=== PATIENT | female | born 1950 | race African-American/Black ===

== ENCOUNTER 2018-10-08 20:01 | Emergency (ER) | payer OTHER ==
[~2018-10-08] VITALS: Ht 154.9 cm; Wt 117.9 kg
[~2018-10-08 20:01] MED LIST: ABILIFY; ACETAMINOPHEN325 M1 PO; ACIPHEX 20 MG T20 MG; ACIPHEX 20 MG T20 MG PO; ADULT LOW DOSE81 MG PO; ALDACTONE100 MG PO; ALPHAGAN P10 ML OPHTHALMIC; AMARYL4 MG; AMARYL4 MG PO; AMBIEN 10 MG TA10 MG PO; ATORVASTATIN CA40 MG PO; AUGMENTIN 875875 MG PO; BENICAR20 MG PO; CENTRUM TABLET1 TAB PO; DIOVAN 80 MG TA80 M1 PO; DIOVAN40 MG PO; DITROPAN XL5 M1 PO; DITROPAN XL5 MG PO; FISH OIL 1,0001 EAC5 PO; FLONASE16 GM NASAL; FUROSEMIDE 20 M20 M1 PO; FUROSEMIDE 40 M40 MG PO; GLUMETZA500 PO; HUMALOG MI100 UNIT/6 SQ; HUMALOG100 UNIT/1; ISOSORBIDE DINI30 MG PO; LASIX 20 MG TAB20 MG PO; LEVEMIR SUBQ; LOPERAMIDE 2 MG2 M1; LUMIGAN2.5 M1 OPHTHALMIC; LYRICA 50 MG50 MG PO; LYRICA100 MG PO; MUCINEX600 MG PO; NEXIUM40 MG PO; NORCO 5-325 TA1 EACH PO; NOVOLOG100 UNIT/1 SUBQ; OCUVITE PRESER1 EACH PO; OXYBUTYNIN 5 MG5 M1 GT; PLAVIX 75 MG TA75 MG PO; RANITIDINE 150150 M1 PO; SPIRONOLACTONE100 M1 PO; TIZANIDINE HCL 22 M1 PO; TOPROL XL100 MG PO; ULTRAM 50MG TAB50 MG PO; UREA CREAM 40%1 TUB1 TOP; UREA CREAM 40%1 TUBE; VANIQA60 GM TP; VICTOZA0.6 MG/0.1 PO; VITAMIN B-12250 MCG; VITAMINC500 PO; ZANAFLEX4 MG PO; ZOCOR 20 MG TAB20 M1 PO; ZOCOR PO; ZOCOR40 MG PO
[2018-10-08] MEDS ORDERED: DOXYCYCLINE 10100 MG PO (22:04)
[2018-10-08] MEDS ORDERED: NORCO 5-325 TA1 EACH PO (22:04)
[2018-10-09 00:15] VITALS: BP 122/70
== END 2018-10-09 00:15 | disposition home or self-care (01) ==
LOC: ER 20:01
DX: S09.90XA Unspecified injury of head, initial encounter (principal); M25.511 Pain in right shoulder; M25.562 Pain in left knee; G89.29 Other chronic pain; M54.9 Dorsalgia, unspecified; R05 Cough; E11.22 Type 2 diabetes mellitus with diabetic chronic kidney disease; I12.9 Hypertensive chronic kidney disease with stage 1 through stage 4 chronic kidney disease, or unspecified chronic kidney disease; N18.3 Chronic kidney disease, stage 3 (moderate); I25.10 Atherosclerotic heart disease of native coronary artery without angina pectoris; K21.9 Gastro-esophageal reflux disease without esophagitis; M19.90 Unspecified osteoarthritis, unspecified site; G47.30 Sleep apnea, unspecified; F03.90 Unspecified dementia, unspecified severity, without behavioral disturbance, psychotic disturbance, mood disturbance, and anxiety; Z86.73 Personal history of transient ischemic attack (TIA), and cerebral infarction without residual deficits; Z79.4 Long term (current) use of insulin; W06.XXXA Fall from bed, initial encounter; Y93.89 Activity, other specified; Y92.89 Other specified places as the place of occurrence of the external cause; Y99.8 Other external cause status

== ENCOUNTER 2019-06-17 06:43 | Emergency (ER) | payer OTHER ==
[~2019-06-17] VITALS: Ht 157.5 cm; Wt 131.5 kg
[~2019-06-17 06:43] MED LIST changes: +DOXYCYCLINE 10100 MG PO
[2019-06-17 09:48] LABS: ABSOLUTE NEUTROPHILS 3.4 thou/uL (1.4-8.2); BASOPHILS 0.4 % (0.0-2.0); EOSINOPHILS 2.1 % (0.0-3.0); HEMATOCRIT 36.8 % (37.0-47.0); HEMOGLOBIN 11.6 gm/dL (12.0-15.0); LYMPHOCYTES 30.9 % (24.0-44.0); MCH 28.8 pg (26.0-34.0); MCHC 31.5 g/dL (28.0-37.0); MCV 91.4 fL (80.0-100.0); MONOCYTES 9.3 % (1.0-8.0); PLATELET COUNT 173 thou/uL (150-400); POLYS 57.3 % (36.0-66.0); RBC 4.03 mil/uL (4.20-5.00); RDW 14.3 % (10.5-14.5); WBC 5.9 thou/uL (4.0-11.0)
[2019-06-17 09:49] LABS: CALCIUM 8.9 mg/dL (8.5-10.1); CREATININE 0.9 mg/dL (0.6-1.0)
[2019-06-17 09:52] LABS: POTASSIUM 5.2 mmol/L (3.5-5.1)
[2019-06-17 09:56] LABS: ALBUMIN 2.9 g/dL (3.4-5.0); TOTAL BILIRUBIN 0.4 mg/dL (<0.1-1.0); TOTAL PROTEIN 6.3 g/dL (6.4-8.2)
[2019-06-17 11:24] VITALS: BP 96/69
--- NOTE | 2019-06-18 07:53 | EKG ---
[place] [address] [facility] [place] [address] ELECTROCARDIOGRAM REPORT Name: JAIRO GATES [facility]: [facility]P [facility] [id number] Admission: 06/17/19 Attend Phys: Discharge: 06/17/19 Date of : 48 Report #: [id number] THIS REPORT FOR: //name// [facility] ED Test Date: 2019-06-17 Test Time: 09:30:23 Pat Name: JAIRO GATES Department: Room: Gender: F Nanotechnology Engineering Technician: BRIAN : 1950 Requested By: Curt Gavin Order Number: [id number] MD: Perry Rich Measurements Intervals [place] Rate: 68 P: 18 WI: 152 QRS: 67 QRSD: 79 T: 187 QT: 478 QTc: 509 Interpretive Statements Sinus rhythm Nonspecific ST and T wave abnormality Compared to ECG 10/24/2015 19:07:30 No significant change was found Electronically Signed On 06-18-2019 7:53:35 CDT by Perry Rich [email or web address] <ELECTRONICALLY SIGNED> By: Perry Rich MD, [facility] 06/18/19 0753 930 9 Perry Rich MD, FACC /EPI
== END 2019-06-17 11:25 ==
LOC: ER 06:43
PROVIDERS: Emergency Medicine
DX: S00.83XA Contusion of other part of head, initial encounter (principal); S00.511A Abrasion of lip, initial encounter; M25.511 Pain in right shoulder; R05 Cough; I12.9 Hypertensive chronic kidney disease with stage 1 through stage 4 chronic kidney disease, or unspecified chronic kidney disease; E11.22 Type 2 diabetes mellitus with diabetic chronic kidney disease; N18.3 Chronic kidney disease, stage 3 (moderate); I25.10 Atherosclerotic heart disease of native coronary artery without angina pectoris; K21.9 Gastro-esophageal reflux disease without esophagitis; M19.90 Unspecified osteoarthritis, unspecified site; G47.30 Sleep apnea, unspecified; Z95.5 Presence of coronary angioplasty implant and graft; Z86.73 Personal history of transient ischemic attack (TIA), and cerebral infarction without residual deficits; Z79.4 Long term (current) use of insulin; W06.XXXA Fall from bed, initial encounter; Y93.89 Activity, other specified; Y92.89 Other specified places as the place of occurrence of the external cause; Y99.8 Other external cause status

== ENCOUNTER 2020-05-16 12:19 | Emergency (ER) | payer OTHER ==
[~2020-05-16] VITALS: Ht 154.9 cm; Wt 108.9 kg
[2020-05-16 13:30] LABS: HEMOGLOBIN 10.2 gm/dL (12.0-15.0); MCH 29.2 pg (26.0-34.0); MCHC 31.9 g/dL (28.0-37.0); MCV 91.6 fL (80.0-100.0); PLATELET COUNT 139 thou/uL (150-400); RDW 14.5 % (10.5-14.5); WBC 4.3 thou/uL (4.0-11.0)
[2020-05-16 13:38] LABS: CALCIUM 8.7 mg/dL (8.5-10.1); POTASSIUM 4.2 mmol/L (3.5-5.1)
[2020-05-16 13:44] LABS: ALBUMIN 3.1 g/dL (3.4-5.0); TOTAL BILIRUBIN 0.5 mg/dL (0.2-1.0); TOTAL PROTEIN 6.6 g/dL (6.4-8.2)
[2020-05-16 13:45] LABS: URINE BILIRUBIN NEGATIVE (Negative); URINE BLOOD 3+ (Negative); URINE CLARITY CLEAR; URINE COLOR YELLOW; URINE GLUCOSE-RANDOM* NEGATIVE (Negative); URINE KETONES NEGATIVE (Negative); URINE LEUKOCYTES-REFLEX TRACE (Negative); URINE NITRITE-REFLEX NEGATIVE (Negative); URINE PROTEIN (DIPSTICK) NEGATIVE (Negative); URINE UROBILINOGEN 0.2 E.U./dl (0.2-1.0)
[2020-05-16 14:12] LABS: CASTS None Seen /LPF (None Seen); CRYSTALS None Seen /LPF (None Seen); SQUAMOUS 0-3 Few /LPF (0-3); URINE RBC 3-10 Few /HPF (0-2); URINE WBC-REFLEX 0-5 Rare /HPF (0-5)
[2020-05-16 14:13] LABS: BACTERIA-REFLEX 1-9 Few /HPF (None Seen)
[2020-05-16 14:26] LABS: ANISOCYTOSIS 1+
[2020-05-16 14:27] LABS: POLYCHROMASIA OCCASIONAL
[2020-05-16 21:22] VITALS: BP 157/75
== END 2020-05-16 21:22 | disposition home or self-care (01) ==
LOC: ER 12:19
PROVIDERS: Physician Assistant
DX: E87.0 Hyperosmolality and hypernatremia (principal); R41.82 Altered mental status, unspecified; F22 Delusional disorders; E11.649 Type 2 diabetes mellitus with hypoglycemia without coma; I10 Essential (primary) hypertension; I25.10 Atherosclerotic heart disease of native coronary artery without angina pectoris; K21.9 Gastro-esophageal reflux disease without esophagitis; M19.90 Unspecified osteoarthritis, unspecified site; Z79.4 Long term (current) use of insulin; Z79.899 Other long term (current) drug therapy; Z95.5 Presence of coronary angioplasty implant and graft; Z86.73 Personal history of transient ischemic attack (TIA), and cerebral infarction without residual deficits

== ENCOUNTER 2020-07-15 05:53 | Inpatient (IN) | payer OTHER ==
[2020-07-15] VITALS (45 sets, daily range): BP systolic 61–178; BP diastolic 29–96
[~2020-07-15] VITALS: Ht 172.7 cm; Wt 113.8 kg
[2020-07-15 06:38] LABS: HEMATOCRIT 28.4 % (37.0-47.0); HEMOGLOBIN 8.7 gm/dL (12.0-15.0); MCH 28.7 pg (26.0-34.0); MCHC 30.7 g/dL (28.0-37.0); MCV 93.6 fL (80.0-100.0); RBC 3.03 mil/uL (4.20-5.00); RDW 14.5 % (10.5-14.5); WBC 3.1 thou/uL (4.0-11.0)
[2020-07-15 06:45] LABS: ANION GAP 2 mmol/L (7-16); BUN 32 mg/dL (7-18); CALCIUM 7.8 mg/dL (8.5-10.1); CHLORIDE 105 mmol/L (98-107); CO2 37 mmol/L (21-32); CREATININE 2.1 mg/dL (0.6-1.0); GLUCOSE 139 mg/dL (74-106); POTASSIUM 5.3 mmol/L (3.5-5.1); SODIUM 144 mmol/L (136-145)
[2020-07-15 06:47] LABS: APTT 29.4 Seconds (24.5-32.8)
[2020-07-15 06:55] LABS: ALBUMIN 2.2 g/dL (3.4-5.0); MAGNESIUM 1.8 mg/dL (1.8-2.4); SGOT 22 U/L (15-37); SGPT 14 U/L (30-65); TOTAL BILIRUBIN 0.2 mg/dL (0.2-1.0); TOTAL PROTEIN 6.1 g/dL (6.4-8.2); TROPONIN-I <0.06 ng/mL (<0.06)
--- NOTE | 2020-07-15 07:09 | NUR ---
DR RAY STATES PT NEEDS CENTRAL LINE
[2020-07-15 07:49] LABS: BE(vivo) 1.1 mmol/L (-2 to +3); PCO2 76.1 mmHg (35.0-45.0); PO2 147.6 mmHg (80.0-100.0); pH 7.214 (7.360-7.450); sO2 98.3 % (92.0-98.0)
[2020-07-15 07:51] LABS: URINE BILIRUBIN NEGATIVE (Negative); URINE BLOOD TRACE (Negative); URINE CLARITY SL CLOUDY; URINE COLOR YELLOW; URINE GLUCOSE-RANDOM* NEGATIVE (Negative); URINE KETONES NEGATIVE (Negative); URINE LEUKOCYTES-REFLEX 2+ (Negative); URINE NITRITE-REFLEX NEGATIVE (Negative); URINE PROTEIN (DIPSTICK) TRACE (Negative); URINE UROBILINOGEN 0.2 E.U./dl (0.2-1.0)
[2020-07-15 08:02] LABS: AMP/METHAMP Negative (Negative); BARBITURATES Negative (Negative); BENZODIAZEPINES Negative (Negative); COCAINE Negative (Negative); METHADONE Negative (Negative); OPIATES Negative (Negative); PCP Negative (Negative)
[2020-07-15 08:19] LABS: FINE GRANULAR CASTS 0-3 Few /LPF (None Seen); HYALINE CASTS 0-3 Few /LPF (None Seen)
[2020-07-15 08:20] LABS: BACTERIA-REFLEX >30 Many /HPF (None Seen); URINE RBC 0-2 Rare /HPF (0-2); URINE WBC-REFLEX >25 Many /HPF (0-5)
[2020-07-15 08:21] LABS: SQUAMOUS 0-3 Few /LPF (0-3)
[2020-07-15 08:22] LABS: CRYSTALS None Seen /LPF (None Seen)
[2020-07-15 08:44] LABS: ABSOLUTE NEUTROPHILS 2.2 thou/uL (1.4-8.2)
[2020-07-15 08:45] LABS: ANISOCYTOSIS SLIGHT; PLATELET COUNT 93 thou/uL (150-400)
[2020-07-15] MEDS ORDERED: ATORVASTATIN CA80 MG PO (10:01)
[2020-07-15] MEDS ORDERED: OLANZAPINE5 MG PO (10:01)
[2020-07-15] MEDS ORDERED: CLOPIDOGREL75 MG PO (10:02)
[2020-07-15] MEDS ORDERED: GABAPENTIN 100100 MG PO (10:02)
[2020-07-15] MEDS ORDERED: TAMSULOSIN HCL0.4 MG PO (10:02)
[2020-07-15] MEDS ORDERED: OLANZAPINE2.5 MG PO (10:02)
[2020-07-15] MEDS ORDERED: CONSTULOSE10 GM/152 (10:02)
[2020-07-15] MEDS ORDERED: ARICEPT10 MG PO (10:03)
[2020-07-15] MEDS ORDERED: IMDUR 30 MG TAB30 M1 PO (10:03)
[2020-07-15] MEDS ORDERED: DIVALPROEX SOD250 M3 PO (10:03)
[2020-07-15] MEDS ORDERED: MEMANTINE HCL10 MG PO (10:03)
[2020-07-15 10:07] LABS: HCO3 38.9 mmol/L (22.0-26.0); PCO2 120.7 mmHg (35.0-45.0); PO2 65.8 mmHg (80.0-100.0); pH 7.126 (7.360-7.450); sO2 83.5 % (92.0-98.0)
[2020-07-15 10:58] LABS: BE(vivo) 3.3 mmol/L (-2 to +3); HCO3 33.9 mmol/L (22.0-26.0); PO2 60.3 mmHg (80.0-100.0); sO2 81.6 % (92.0-98.0)
[2020-07-15 10:59] LABS: PCO2 98.2 mmHg (35.0-45.0); pH 7.156 (7.360-7.450)
--- NOTE | 2020-07-15 12:03 | NUR ---
CONSULTED TO PLACE A CENTRAL LINE FOR A PATIENT IN ER POST CODE. THE PATIENT HAS A RIGHT EJ AND UNABLE TO OBTAIN ANY OTHER ACCESS. ORDER AND CONSENT PER MEDICAL NECESSITY/DR. RAY. THE LEFT JUGULAR WAS WIDLEY PATIENT, THE PATIENTS NECK AREA IS LARGE AND VESSEL IS DEEP WHICH MADE ACCESSING THE VEIN DIFFICULT. THE LINE WAS PLACED PER POLICY AFTER A BEDSIDE TIMEOUT WAS COMPLETED. THE 25CM LINE WAS ADVANCED TO 20CM WITH BRISK BLOOD RETURN AND FLUSHED EASILY. A STAT CHEST XRAY CONFIRMED LINE IN THE SVC AND RELEASED FOR USE
[2020-07-15] MEDS ORDERED: ISOSORBIDE MONO30 M1 PO (13:58)
[2020-07-15] MEDS ORDERED: LEVEMIR FL100 UNIT/2 SUBQ (13:59)
[2020-07-15] MEDS ORDERED: SODIUM BICARBO650 M3 PO (14:00)
[2020-07-15 17:17] LABS: BE(vivo) -0.8 mmol/L (-2 to +3); HCO3 29.1 mmol/L (22.0-26.0); PO2 86.6 mmHg (80.0-100.0); sO2 93.2 % (92.0-98.0)
[2020-07-15 17:19] LABS: PCO2 83.7 mmHg (35.0-45.0); pH 7.159 (7.360-7.450)
--- NOTE | 2020-07-15 19:38 | NUR ---
PT CAME FROM ER AT 1630. PT ON BIPAP AT 60% FIO2. PT AWAKE BUT ONLY LOZCALIZES PAIN. PT NOT FOLLOWING COMMANDS. PT HAVE A LEFT IJ CENTRAL LINE. PT CONNECTED TO ICU MONITORS. ABG DRAWN AT 1730. DR. CROOK NOTIFIED BY RT KAREN ABOUT PT ABG VALUES. DR. CROOK AT BEDSIDE. PT INTUBATED AT 1815 WITH 7.5 ETT 22 AT LIPS. PT GIVEN 40MG ETOMIDATE AND 10 MG ROCURONIUM FOR SEDATION BEFORE INTUBATION. PT STARTED ON LEVOPHED. PT HAS COPIOUS AMOUNT OF SECRETIONS. PT HAD BEDSIDE BRONCHOSCOPY BY DR. CROOK.
[2020-07-16] VITALS (79 sets, daily range): BP systolic 86–175; BP diastolic 40–97
[2020-07-16 06:05] LABS: ABSOLUTE NEUTROPHILS 9.1 thou/uL (1.4-8.2); BASOPHILS 0.2 % (0.0-2.0); HEMATOCRIT 26.6 % (37.0-47.0); HEMOGLOBIN 8.8 gm/dL (12.0-15.0); LYMPHOCYTES 8.3 % (24.0-44.0); MCH 30.7 pg (26.0-34.0); MCHC 33.1 g/dL (28.0-37.0); MCV 92.8 fL (80.0-100.0); MONOCYTES 5.4 % (1.0-8.0); PLATELET COUNT 116 thou/uL (150-400); POLYS 86.1 % (36.0-66.0); RBC 2.87 mil/uL (4.20-5.00); RDW 14.1 % (10.5-14.5); WBC 10.6 thou/uL (4.0-11.0)
[2020-07-16 06:37] LABS: CALCIUM 7.6 mg/dL (8.5-10.1); CREATININE 2.3 mg/dL (0.6-1.0); MAGNESIUM 1.5 mg/dL (1.8-2.4); PHOSPHORUS 1.1 mg/dL (2.5-4.9); TOTAL BILIRUBIN 1.2 mg/dL (0.2-1.0); TOTAL PROTEIN 5.9 g/dL (6.4-8.2)
--- NOTE | 2020-07-16 07:32 | NUR ---
VSS. SEDATED ON PROPOFOL GTT. BP MAINTAINED WITH LEVO GTT. RIDES VENT. FIO2 REMAINS AT 100%. LARGE BM THIS SHIFT. PROGRESSING TOWARDS PLAN OF CARE.
[2020-07-16 08:45] LABS: BE(vivo) 3.8 mmol/L (-2 to +3); HCO3 24.4 mmol/L (22.0-26.0); PO2 47.3 mmHg (80.0-100.0); pH 7.625 (7.360-7.450)
--- NOTE | 2020-07-16 11:55 | HC ---
[facility] [place] [address] CONSULTATION Name: JAIRO GATES Room #: 239-P ADM IN M.R.#: [id number] Admission: 07/15/20 Attend Phys: Daniella Flores MD Discharge: Date of : 48 Report #: [id number] THIS REPORT FOR: cc: Ike Beal MD, Ramilo MD Barry,Davonte Lott MD ~ DATE OF SERVICE: 07/16/2020 INFECTIOUS DISEASE CONSULTATION ATTENDING PHYSICIAN: Dr. Flores. REASON FOR EVALUATION: COVID-19 infection, complicated by multiple organ dysfunction, septicemia. HISTORY OF PRESENT ILLNESS: Chart reviewed, patient examined. This is a 70-year-old woman with extensive medical history including diabetes mellitus, renal failure, who was ____ facility, she was found unresponsive. Evaluation noted hypoxemia. Of note, she had been tested for COVID few days prior, repeat testing confirmed positive. Additionally, blood cultures were collected and now 2 out 2 positive gram-positive cocci. She did undergo emergent intubation and bronchoscopy due to thick secretions. Urinalysis did show greater than 25 white cells. At this point, she is sedated on the vent, FiO2 100% and pressure support. She was started empirically on combination therapy with vancomycin and Zosyn. ALLERGIES: None known. MEDICATIONS: Include zinc, clopidogrel, methylprednisolone, vancomycin, propofol, Zosyn, pantoprazole, insulin lispro, ipratropium and albuterol inhaler, azithromycin, one-time dose of remdesivir. PAST MEDICAL HISTORY: Diabetes mellitus type 2, insulin requiring. Hypertension. Has known vasculopathy. Coronary artery disease, previous stenting. Stage 3 kidney disease, reflux, osteoarthritis, previous stroke, sleep apnea, depression. SOCIAL HISTORY: Nonsmoker, no ethanol, no illicit drug use. FAMILY HISTORY: Noncontributory. REVIEW OF SYSTEMS: Unobtainable. PHYSICAL EXAMINATION: [facility] [address] [place] [address] CONSULTATION Name: JAIRO GATES Room #: 239-P [facility]#: [id number] Admission: 07/15/20 Attend Phys: Daniella Flores MD Discharge: Date of : 48 Report #: [id number] GENERAL: She appears chronically ill. She is sedated supine on the vent. VITAL SIGNS: She is afebrile, pulse 72, respirations 22, blood pressure 149/49. SKIN: Warm, dry, no rashes. HEENT: ET and OG tube in place. She has got a central venous catheter. NECK: Appears to be supple. LUNGS: Scattered coarse breath sounds. HEART: Regular with some ectopy. ABDOMEN: Obese, soft. There are no peritoneal signs. GENITOURINARY AND RECTAL: Deferred. LABORATORY DATA: Blood cultures collected 2 out 2 positive. Most recent chest x-ray showed bilateral perihilar and bibasilar partially consolidated infiltrate. ABGs from last evening; pH 7.159, pCO2 of 83.7, pO2 of 86.6 ____. Legionella and streptococcal urinary antigens were negative. Procalcitonin 0.33, it is confirmed positive COVID antigen. Influenza antigen was negative. Initial CBC: White count 3.1, H and H 8.7 and 28.4, platelets of 93. Urinalysis greater than 25 white cells. Lactic acid 0.6. Electrolytes: Sodium 144, potassium 5.3, chloride 105, bicarbonate is 37, anion gap of 2, BUN and creatinine 32 and 2.1. LFTs unremarkable. Albumin of 2.2, total protein 6.1. ASSESSMENT: COVID-19 positive, complication of apparent gram-positive cocci, septicemia as well as complicated urinary tract infection. She remains critically ill at this point. We will continue broad-spectrum combination therapy. Await results of the cultures. Maximal supportive care in the Intensive Care Unit. Overall, prognosis appears quite guarded. <ELECTRONICALLY SIGNED> By: Davonte Jones MD 07/16/20 1155 0601 1026 Davonte Jones MD /nt
[2020-07-16 17:53] LABS: CALCIUM 8.1 mg/dL (8.5-10.1); MAGNESIUM 1.6 mg/dL (1.8-2.4); PHOSPHORUS 2.8 mg/dL (2.5-4.9); POTASSIUM 3.4 mmol/L (3.5-5.1)
[2020-07-16 19:28] LABS: HCO3 25.4 mmol/L (22.0-26.0); PO2 76.9 mmHg (80.0-100.0); pH 7.517 (7.360-7.450); sO2 96.6 % (92.0-98.0)
[2020-07-17] VITALS (48 sets, daily range): BP systolic 98–129; BP diastolic 49–94
[2020-07-17 04:39] LABS: BE(vivo) 0 mmol/L (-2 to +3); HCO3 24.4 mmol/L (22.0-26.0); PCO2 38.9 mmHg (35.0-45.0); PO2 70.8 mmHg (80.0-100.0); pH 7.416 (7.360-7.450); sO2 94.5 % (92.0-98.0)
[2020-07-17 04:42] LABS: ABSOLUTE NEUTROPHILS 9.2 thou/uL (1.4-8.2); BASOPHILS 0.2 % (0.0-2.0); HEMATOCRIT 25.5 % (37.0-47.0); HEMOGLOBIN 8.4 gm/dL (12.0-15.0); LYMPHOCYTES 3.6 % (24.0-44.0); MCH 30.1 pg (26.0-34.0); MCHC 32.9 g/dL (28.0-37.0); MCV 91.6 fL (80.0-100.0); PLATELET COUNT 107 thou/uL (150-400); POLYS 93.2 % (36.0-66.0); RBC 2.78 mil/uL (4.20-5.00); RDW 14.5 % (10.5-14.5); WBC 9.9 thou/uL (4.0-11.0)
[2020-07-17 05:02] LABS: ALBUMIN 1.8 g/dL (3.4-5.0); CALCIUM 7.8 mg/dL (8.5-10.1); MAGNESIUM 1.8 mg/dL (1.8-2.4); PHOSPHORUS 2.9 mg/dL (2.5-4.9); POTASSIUM 3.3 mmol/L (3.5-5.1); TOTAL BILIRUBIN 1.2 mg/dL (0.2-1.0); TOTAL PROTEIN 5.9 g/dL (6.4-8.2)
--- NOTE | 2020-07-17 07:34 | EKG ---
[facility] [place] [address] ELECTROCARDIOGRAM REPORT Name: JAIRO GATES Room #: 239-P ADM IN M.R.#: [id number] Admission: 07/15/20 Attend Phys: Daniella Flores MD Discharge: Date of : 48 Report #: [id number] THIS REPORT FOR: cc: Ike Beal MD, Ramilo MD Lundgren,Perry Bowden MD [facility] ~ THIS REPORT FOR: //name// [facility] ED Test Date: 2020-07-15 Test Time: 06:21:12 Pat Name: JAIRO GATES Department: Room: 239 Gender: F Stationary Boiler Fireman: shubham mcnamara rn : 1950 Requested By: Mehdi Young Order Number: [id number] MD: Perry Rich Measurements Intervals [place] Rate: 99 P: 56 MI: 140 QRS: 62 QRSD: 82 T: 19 QT: 332 QTc: 426 Interpretive Statements Sinus tachycardia Atrial premature complexes Abnormal R-wave progression, late transition Compared to ECG 06/17/2019 09:30:23 Atrial premature complex(es) now present Electronically Signed On 07-17-2020 7:34:38 MATERIAL PLANNER by Perry Rich [email or web address] <ELECTRONICALLY SIGNED> By: Perry Rich MD, FACC 07/17/2034 0 0 Perry Rich MD, FAC /EPI
--- NOTE | 2020-07-17 08:26 | NUR ---
Patient progressing towards plan of care as evidenced by urine output >30ml/hour, oxygentation >92%, afebrile, no further need for levophed. Fecal management system was flushed this morning as no output was noted in tube, however around tube. Plan of care is to continue to monitor patient status, follow covid regimen, and monitor vital signs.
--- NOTE | 2020-07-17 11:09 | NUR ---
Pt has been npo x 2 days. Recommend start enteral nutrition 1. If no feeding pump available, will need 1 carton vital high protein TID with 240ml water flush every 6hr. Add 1 packet beneprotein in each flush. Rec continue IVF the same until Na levels wnl. 2. If feeding pump available, goal rate of vital high protein should be 35ml/hr.
--- NOTE | 2020-07-17 14:14 | NUR ---
SEDATION VACATION FROM [id number]. PATIENT DID NOT TOLERATE IT WELL EVIDENCED BY TACHYPNEA AND INCREASED RESTLESSNESS.
--- NOTE | 2020-07-17 15:47 | NUR ---
FAXED CLINICAL UPDATE TO [facility] RECEIVED CONFIRMATION. DP TO FOLLOW.
--- NOTE | 2020-07-17 16:30 | NUR ---
Chart reviewed and case discussed with the care team. 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 She has lived there since 2018. They are holding her room. The pt was found unresponsive in her [facility] at the [facility]. She tested Covid+ in the ER. She has a hx of a stroke. She is currently in the ICU on the vent with pressure support. Pt's spouse requested real estate underwriter add their son Miquel to the contact list should we not be able to reach him. He expressed sadness as not being able to visit her at the ne since November other than a window visit. Support provided and contact numbers for the ICU and cm provided. He is hopeful she will be able to recover and return to [facility]. Will follow. He will be calling the LIGHT ADJUSTER this afternoon to see if they will call him from the room so he can talk to her (he is aware she is on the vent) but that she can hear his voice.
[2020-07-18] VITALS (49 sets, daily range): BP systolic 93–152; BP diastolic 45–72
[2020-07-18 05:39] LABS: CREATININE 1.6 mg/dL (0.6-1.0); POTASSIUM 3.4 mmol/L (3.5-5.1)
--- NOTE | 2020-07-18 07:25 | NUR ---
VSS. SA/SB WITH PACS ON MONITOR. FMS IN PLACE. PT TOLERATING BOLUS TF. HAD FULL BATH AND LINEN CHANGE. HAD 1200 CC URINE OUTPUT THIS SHIFT. PT PROGRESSING IN PLAN OF CARE. FAMILY UPDATED VIA PHONE THIS SHIFT.
--- NOTE | 2020-07-18 12:38 | EKG ---
[facility] [place] [address] ELECTROCARDIOGRAM REPORT Name: JAIRO GATES Room #: 239-P ADM IN M.R.#: [id number] Admission: 07/15/20 Attend Phys: Daniella Flores MD Discharge: Date of : 48 Report #: [id number] THIS REPORT FOR: cc: Ike Beal MD, Ramilo MD Santiago,Ayo [facility] ~ THIS REPORT FOR: //name// [facility] Test Date: 2020-07-18 Test Time: 11:26:35 Pat Name: JAIRO GATES Department: Room: 239 P Gender: F Song Writer: SEAN : 1950 Requested By: Sean Hernandez Order Number: [id number] MD: Ayo Bustamante Measurements Intervals [place] Rate: 80 P: [place]: QRS: 42 QRSD: 87 T: 8 QT: 415 QTc: 479 Interpretive Statements NSR Borderline T abnormalities, inferior leads Compared to ECG 07/15/2020 06:21:12 T-wave abnormality now present Sinus tachycardia no longer present Atrial premature complex(es) no longer present Electronically Signed On 07-18-2020 12:38:28 SURVEY ASSOCIATE by Ayo Bustamante [email or web address] <ELECTRONICALLY SIGNED> By: Ayo Bustamante MD, FACC 07/18/20 1238 1126 1126 Ayo Bustamante MD, FACC /EPI
--- NOTE | 2020-07-18 18:46 | NUR ---
FAILED WEANING TRIAL WITH PROPOFOL REDUCED BY HALF. STILL NOT FOLLOWING COMMANDS. CONTINUOUS TUBE FEEDING AT GOAL RATE AND TOLERATING WELL. PROGRESSING SLOWLY TOWARD GOALS.
[2020-07-19] VITALS (46 sets, daily range): BP systolic 82–125; BP diastolic 42–92
[2020-07-19 04:11] LABS: HEMOGLOBIN 7.3 gm/dL (12.0-15.0); MCHC 33.3 g/dL (28.0-37.0); RBC 2.44 mil/uL (4.20-5.00); RDW 14.8 % (10.5-14.5)
[2020-07-19 04:28] LABS: CALCIUM 7.7 mg/dL (8.5-10.1); CREATININE 1.5 mg/dL (0.6-1.0); POTASSIUM 3.1 mmol/L (3.5-5.1)
--- NOTE | 2020-07-19 06:32 | NUR ---
PT SEDATED ON PROPOFOL AND FENTANYL GTTS. PT HAS TREMORS. TOLERATING CONTINUOUS TUBE FEEDS AT GOAL. PT HAS FOUL SMELLING STOOL PRESENT IN FMS. 1300 CC URINE IN CHAVEZ THIS SHIFT. PROGRESSING TOWARDS GOAL.
[2020-07-20] VITALS (49 sets, daily range): BP systolic 81–141; BP diastolic 35–86
[2020-07-20 06:48] LABS: CALCIUM 7.9 mg/dL (8.5-10.1); CREATININE 1.3 mg/dL (0.6-1.0); POTASSIUM 3.4 mmol/L (3.5-5.1)
--- NOTE | 2020-07-20 18:54 | NUR ---
ON THE VENT LIGHTLY SEDATED. VITALS STABLE, UNABLE TO WEAN OFF LEVO. FIO2 UP TO 50% UNALBLE TO WEAN. TUBEFEEDING PER OGT AND TOLERATING WELL. DR. CALVILLO NOTIFIED THAT PATIENT'S WANTED AND UPDATE FROM M.D. AND STATED HE WOULD CALL HIM WITH UPDATE.
[2020-07-21] VITALS (53 sets, daily range): BP systolic 88–154; BP diastolic 29–74
[2020-07-21 05:29] LABS: CALCIUM 7.7 mg/dL (8.5-10.1); CREATININE 1.4 mg/dL (0.6-1.0); POTASSIUM 3.4 mmol/L (3.5-5.1)
[2020-07-21 09:18] LABS: ALBUMIN 1.5 g/dL (3.4-5.0); DIRECT BILIRUBIN 0.2 mg/dL (<0.1-0.2); TOTAL BILIRUBIN 0.3 mg/dL (0.2-1.0); TOTAL PROTEIN 5.7 g/dL (6.4-8.2)
--- NOTE | 2020-07-21 11:05 | NUR ---
BG levels elevated and Na has returned to normal limits. Rec to discontinue D5 fluids, and start water flushes of 240ml every 6hr and add 1 packet beneprotein in each flush
--- NOTE | 2020-07-21 13:19 | NUR ---
chart review, she remains on vent with nutritional support. kayleen visited with spouse zan, " just would like the communication to continue with nurses and dr on how she is doing. would like to know how much is going to be covered by medicare?"/zan. cm passed on to zan that medicare covers 80% and if has 2nd insurance sometimes covers the other %, sometimes there is a deductible that has to be covered, wont know until billing is completed. will cont following as needed for dc needs.
[2020-07-21 13:39] LABS: BE(vivo) -6.1 mmol/L (-2 to +3); HCO3 20.1 mmol/L (22.0-26.0); PCO2 43.1 mmHg (35.0-45.0); PO2 57.9 mmHg (80.0-100.0); sO2 86.9 % (92.0-98.0)
[2020-07-21 13:40] LABS: pH 7.287 (7.360-7.450)
--- NOTE | 2020-07-21 19:16 | NUR ---
ASSUMED CARE AT 0700. PATIENT SLOWLY PROGRESSING TOWARDS THE PLAN OF CARE.
[2020-07-22] VITALS (81 sets, daily range): BP systolic 78–164; BP diastolic 35–70
[2020-07-22 05:25] LABS: CREATININE 1.1 mg/dL (0.6-1.0); POTASSIUM 4.3 mmol/L (3.5-5.1)
[2020-07-22 05:32] LABS: ALBUMIN 1.5 g/dL (3.4-5.0); DIRECT BILIRUBIN 0.1 mg/dL (<0.1-0.2); TOTAL BILIRUBIN 0.3 mg/dL (0.2-1.0)
[2020-07-22 07:27] LABS: HEMATOCRIT 23.3 % (37.0-47.0); HEMOGLOBIN 7.4 gm/dL (12.0-15.0); MCHC 31.9 g/dL (28.0-37.0); MCV 90.7 fL (80.0-100.0); RBC 2.57 mil/uL (4.20-5.00); RDW 16.1 % (10.5-14.5); WBC 10.7 thou/uL (4.0-11.0)
--- NOTE | 2020-07-22 13:02 | NUR ---
DR. CALVILLO ROUNDING ON PATIENT. RN GIVING HIM FAMILIES NUMBER. CALLING AROUND [phone]. RN UPDATING HIM AND EXPLAINING TO HIM HIS 'S CONDITION.
[2020-07-23] VITALS (82 sets, daily range): BP systolic 90–163; BP diastolic 41–79
[2020-07-23 05:16] LABS: ALBUMIN 1.5 g/dL (3.4-5.0); DIRECT BILIRUBIN 0.1 mg/dL (<0.1-0.2); TOTAL BILIRUBIN 0.3 mg/dL (0.2-1.0); TOTAL PROTEIN 5.8 g/dL (6.4-8.2)
[2020-07-23 06:44] LABS: ALBUMIN 1.5 g/dL (3.4-5.0); CALCIUM 8.4 mg/dL (8.5-10.1); CREATININE 1.2 mg/dL (0.6-1.0); POTASSIUM 3.8 mmol/L (3.5-5.1); TOTAL BILIRUBIN 0.3 mg/dL (0.2-1.0); TOTAL PROTEIN 5.9 g/dL (6.4-8.2)
[2020-07-23 07:03] LABS: MCH 28.6 pg (26.0-34.0); MCHC 31.8 g/dL (28.0-37.0); MCV 90.2 fL (80.0-100.0); PLATELET COUNT 261 thou/uL (150-400); RBC 2.44 mil/uL (4.20-5.00); RDW 16.3 % (10.5-14.5); WBC 9.2 thou/uL (4.0-11.0)
[2020-07-23 07:39] LABS: ABSOLUTE NEUTROPHILS 6.8 thou/uL (1.4-8.2); METAMYELOCYTES 4 %; MYELOCYTES 2 %; PLATELET ESTIMATE NORMAL
--- NOTE | 2020-07-23 18:55 | NUR ---
ASSESSMENTS AND INTERVENTIONS DOCCUMENTED. NO MAJOR CHANGES THIS SHIFT. PATIENT NOT PROGRESSING TOWARDS GOALS AT THIS TIME. PATIENT STILL REQUIRING O2 AT THIS TIME. POC STILL REMAINS THE SAME.
--- NOTE | 2020-07-23 22:59 | NUR ---
SPOKE WITH PT'S FROM 2234 TO 2248, VERBALISED HE IS CONCERNED ABOUT PT CONDITION NOT IMPROVING.
[2020-07-24] VITALS (81 sets, daily range): BP systolic 66–160; BP diastolic 37–67
[2020-07-24 05:01] LABS: ALBUMIN 1.4 g/dL (3.4-5.0); CALCIUM 8.2 mg/dL (8.5-10.1); CREATININE 1.2 mg/dL (0.6-1.0); DIRECT BILIRUBIN 0.2 mg/dL (<0.1-0.2); POTASSIUM 3.6 mmol/L (3.5-5.1); TOTAL BILIRUBIN 0.2 mg/dL (0.2-1.0); TOTAL PROTEIN 4.8 g/dL (6.4-8.2)
[2020-07-24 06:18] LABS: HEMATOCRIT 22.8 % (37.0-47.0); HEMOGLOBIN 7.5 gm/dL (12.0-15.0); MCH 29.1 pg (26.0-34.0); MCHC 32.7 g/dL (28.0-37.0); MCV 88.9 fL (80.0-100.0); RBC 2.57 mil/uL (4.20-5.00); RDW 15.9 % (10.5-14.5); WBC 10.3 thou/uL (4.0-11.0)
[2020-07-24 09:09] LABS: BE(vivo) -1.9 mmol/L (-2 to +3); HCO3 23.4 mmol/L (22.0-26.0); PCO2 42.1 mmHg (35.0-45.0); PO2 57.1 mmHg (80.0-100.0); pH 7.362 (7.360-7.450); sO2 88.7 % (92.0-98.0)
--- NOTE | 2020-07-24 12:24 | NUR ---
I ATTEMPTED TO COUNT PROPOFOL BOTTLES, ONE BOTTLE FELL AND BROKE, MCKAYLA PHARM-D INFORMED ABOUT THIS INCIDENT. RN INSTRUCTED TO DO INVENTORY.
--- NOTE | 2020-07-24 15:30 | NUR ---
ASSUMED CARE @ 0700 07/24/20, PT ASSESSMENTS AND VS COMPLETE PER ICU PROTOCOL. ABG'S ORDERS PER DR CROOK THIS AM, RESULTS CALLED TO DR CROOK PER MARTY RT, FI02 INCREASED TO 70%. DR CALVILLO @ BEDSIDE @ 0930, UPDATE GIVEN PER RN, NO NEW ORDERS RECIEVED AT THIS TIME.
[2020-07-25] VITALS (98 sets, daily range): BP systolic 65–165; BP diastolic 33–84
--- NOTE | 2020-07-25 02:56 | NUR ---
0256- Patients spouse called for an update on patient, he provided security code and his name. His questions were answered and nurse updated him on patient status and plan of care. He expressed he wants Felicia Medina added to call list. Nurse expressed with jaswant, it is best to limit amount of phone calls to one spokes person to better care for his loved one. He expressed he understood, but he wants her added. He also asked if he could send a card here for the patient, nurse expressed that would be great. Patients spouse also requested a physician call him today to update him, based on their opinion and knowledge. This will be passed on to day shift RN.
--- NOTE | 2020-07-25 05:15 | NUR ---
Patient not progressing towards plan of care as evidenced by continued need for levophed for blood pressure support, high oxygen demands at 70% FIO2, strong gag and cough if woken up and desaturates into upper 80%. Will continue to follow plan of care of monitoring patient assessment q2-4 hours, vital signs q15 minutes, attempt to wean off levophed, attempt to wean down FIO2, wean down sedation when ventilator settings lowered and patient tolerates it. Will continue to update family as they call and inquire about her condition.
[2020-07-25 05:53] LABS: ALBUMIN 1.2 g/dL (3.4-5.0); DIRECT BILIRUBIN 0.1 mg/dL (<0.1-0.2); TOTAL BILIRUBIN 0.2 mg/dL (0.2-1.0); TOTAL PROTEIN 5.4 g/dL (6.4-8.2)
--- NOTE | 2020-07-25 11:51 | NUR ---
chart review. she remains on vent, nutritional support. COVID +. noted per chart bedside nurse has already spoke with spouse today and her spouse zan has requested to speak with the MD. will cont following as needed for dc needs.
--- NOTE | 2020-07-25 18:25 | NUR ---
ASSUMED CARE @ 0700 07/25/20, PT ASSESSMENTS AND VSS COMPLETE PER ICU PRT. PT HAD AN UNEVENTFUL DAY 1624: CHELA () CALLED FOR AN UPDATE, CODE VERIFIED, UPDATE GIVEN. RN TOLD HE WOULD LIKE A CALL FROM DR CROOK, THIS WAS PASSED DOWN TO DR CROOK @ 1805.
[2020-07-26] VITALS (98 sets, daily range): BP systolic 86–170; BP diastolic 35–65
[2020-07-26 04:40] LABS: BE(vivo) -0.5 mmol/L (-2 to +3); HCO3 25.2 mmol/L (22.0-26.0); PCO2 46.7 mmHg (35.0-45.0); PO2 61.4 mmHg (80.0-100.0); sO2 90.3 % (92.0-98.0)
[2020-07-26 04:58] LABS: RBC 2.22 mil/uL (4.20-5.00); RDW 16.5 % (10.5-14.5)
[2020-07-26 05:01] LABS: HEMOGLOBIN 6.5 gm/dL (12.0-15.0); MCH 29.2 pg (26.0-34.0); MCHC 32.9 g/dL (28.0-37.0); MCV 88.8 fL (80.0-100.0); PLATELET COUNT 230 thou/uL (150-400); WBC 10.5 thou/uL (4.0-11.0)
[2020-07-26 05:16] LABS: HEMATOCRIT 19.7 % (37.0-47.0)
[2020-07-26 05:18] LABS: ALBUMIN 1.6 g/dL (3.4-5.0); CALCIUM 8.3 mg/dL (8.5-10.1); CREATININE 1.2 mg/dL (0.6-1.0); POTASSIUM 3.1 mmol/L (3.5-5.1); TOTAL BILIRUBIN 0.2 mg/dL (0.2-1.0)
[2020-07-26 06:46] LABS: ABSOLUTE NEUTROPHILS 8.7 thou/uL (1.4-8.2); ANISOCYTOSIS 1+; PLATELET ESTIMATE NORMAL; POIKILOCYTOSIS 1+
--- NOTE | 2020-07-26 07:43 | EKG ---
[facility] [place] [address] ELECTROCARDIOGRAM REPORT Name: JAIRO GATES Room #: 239-P ADM IN M.R.#: [id number] Admission: 07/15/20 Attend Phys: Daniella Flores MD Discharge: Date of : 48 Report #: [id number] THIS REPORT FOR: cc: Ike eBal MD, Ramilo MD Lundgren,Perry Bowden MD [facility] ~ THIS REPORT FOR: //name// [facility] Test Date: 2020-07-25 Test Time: 19:48:49 Pat Name: JAIRO GATES Department: Room: 239 P Gender: F Processor Solid Propellant: MARLYN : 1950 Requested By: Daniella Flores Order Number: [id number] MD: Perry Rich Measurements Intervals [place] Rate: 122 P: [place]: QRS: 55 QRSD: 86 T: 255 QT: 291 QTc: 415 Interpretive Statements Atrial fibrillation Nonspecific repol abnormality, diffuse leads Compared to ECG 07/18/2020 11:26:35 Atrial fibrillation has replaced sinus rhythm Nonspecific change in the ST segment abnormality Electronically Signed On 07-26-2020 7:43:05 FOILING MACHINE ADJUSTER by Perry Rich [email or web address] <ELECTRONICALLY SIGNED> By: Perry Rich MD, FACC 07/26/20 0743 47 47 Perry Rich MD, FACC /EPI
--- NOTE | 2020-07-26 18:03 | NUR ---
ASSUMED CARE AT 0700. PATIENT'S DAUGHTER WAS UPDATED AND EDUCATED ON THE PATIENT'S CONDTION AND PLAN OF CARE VIA PHONE CALL RIGHT BEFORE 0900 AND AROUND 1230.
[2020-07-27] VITALS (77 sets, daily range): BP systolic 88–142; BP diastolic 38–101
[2020-07-27 07:33] LABS: BE(vivo) 0.1 mmol/L (-2 to +3); HCO3 24.7 mmol/L (22.0-26.0); PCO2 39.7 mmHg (35.0-45.0); pH 7.412 (7.360-7.450); sO2 94.1 % (92.0-98.0)
[2020-07-28] VITALS (36 sets, daily range): BP systolic 86–143; BP diastolic 40–65
[2020-07-28 04:24] LABS: BE(vivo) -2.2 mmol/L (-2 to +3); HCO3 22.9 mmol/L (22.0-26.0); PCO2 40.2 mmHg (35.0-45.0); pH 7.373 (7.360-7.450); sO2 93.5 % (92.0-98.0)
[2020-07-28 05:52] LABS: ABSOLUTE NEUTROPHILS 9.2 thou/uL (1.4-8.2); BASOPHILS 0.2 % (0.0-2.0); EOSINOPHILS 0.7 % (0.0-3.0); HEMATOCRIT 21.4 % (37.0-47.0); LYMPHOCYTES 10.6 % (24.0-44.0); MCH 29.4 pg (26.0-34.0); MCHC 32.7 g/dL (28.0-37.0); MCV 89.9 fL (80.0-100.0); MONOCYTES 5.1 % (1.0-8.0); PLATELET COUNT 195 thou/uL (150-400); POLYS 83.4 % (36.0-66.0); RBC 2.38 mil/uL (4.20-5.00); RDW 16.5 % (10.5-14.5)
[2020-07-28 06:44] LABS: ALBUMIN 1.7 g/dL (3.4-5.0); CALCIUM 8.4 mg/dL (8.5-10.1); CREATININE 1.3 mg/dL (0.6-1.0); POTASSIUM 3.9 mmol/L (3.5-5.1); TOTAL BILIRUBIN 0.4 mg/dL (0.2-1.0); TOTAL PROTEIN 5.8 g/dL (6.4-8.2)
--- NOTE | 2020-07-28 14:16 | NUR ---
chart review. she cont to require vent, and nutritional support. covid +. noted bedside nurse provided updates to spouse zan. will cont following as needed for dc needs.
--- NOTE | 2020-07-28 14:42 | NUR ---
chart review. chuy remains on vent with nutritional support. aleena requested updates. cm provided verbal update and cm team faxed updates to [phone]. will cont following as needed for dc needs.
[2020-07-29] VITALS (54 sets, daily range): BP systolic 83–169; BP diastolic 39–80
--- NOTE | 2020-07-29 18:24 | NUR ---
ASSUMED CARE AT 0700. PATIENT SLOWLY PROGRESSING TOWARDS THE PLAN OF CARE.
[2020-07-30] VITALS (58 sets, daily range): BP systolic 77–147; BP diastolic 31–71
[2020-07-30 04:41] LABS: HCO3 26.3 mmol/L (22.0-26.0); PO2 59.9 mmHg (80.0-100.0); pH 7.384 (7.360-7.450); sO2 90.5 % (92.0-98.0)
[2020-07-30 05:34] LABS: ABSOLUTE NEUTROPHILS 9.9 thou/uL (1.4-8.2); BASOPHILS 0.6 % (0.0-2.0); EOSINOPHILS 1.3 % (0.0-3.0); HEMATOCRIT 20.4 % (37.0-47.0); HEMOGLOBIN 6.6 gm/dL (12.0-15.0); RBC 2.25 mil/uL (4.20-5.00); WBC 11.6 thou/uL (4.0-11.0)
[2020-07-30 05:37] LABS: LYMPHOCYTES 7.8 % (24.0-44.0); MCH 29.2 pg (26.0-34.0); MCHC 32.3 g/dL (28.0-37.0); MCV 90.7 fL (80.0-100.0); MONOCYTES 4.8 % (1.0-8.0); PLATELET COUNT 148 thou/uL (150-400); POLYS 85.5 % (36.0-66.0); RDW 16.3 % (10.5-14.5)
[2020-07-30 05:55] LABS: ALBUMIN 1.9 g/dL (3.4-5.0); CALCIUM 8.5 mg/dL (8.5-10.1); CREATININE 1.3 mg/dL (0.6-1.0); TOTAL BILIRUBIN 0.4 mg/dL (0.2-1.0); TOTAL PROTEIN 6.2 g/dL (6.4-8.2)
[2020-07-30 05:59] LABS: POTASSIUM 2.6 mmol/L (3.5-5.1)
--- NOTE | 2020-07-30 07:28 | NUR ---
PATIENT WOULD DESAT ANYTIME SHE WAS MOVED. PATIENT WAS VERY TACHYPNIC AND HER PROPOFOL AND FENTANYL WAS INCREASED. PATIENT'S SATS INCREASED. AROUND 0630 PATIENT'S OXYGEN DROPPED INTO THE LOW 80S AND DIDN'T RECOVER. PEEP INCREASED TO 12. PATIENT ALSO SUCTIONED. BLOOD WAS DRAWN FOR CULTURES AND PATIENT'S POTASSIUM WAS CRIT LOW. MADE AWARE, ORDERS RECIEVED, POTASSIUM STARTED. PATIENT'S TALKED WITH THE PATIENT TWICE LAST NIGHT.
--- NOTE | 2020-07-30 19:00 | NUR ---
ASSUMED CARE AT 0700. PATIENT RECEIVED 1 U OF PRBC TODAY WHICH WAS TOLERATED WELL. PATIENT NOT PROGRESSING TOWARDS THE PLAN OF CARE. POTASSIUM REPLACED PER PROTOCOL. SPOKE WITH PATIENT'S SISTER FROM [phone] AND SHE WAS UPDATED AND EDUCATED ON PATIENT CONDITION AND PLAN OF CARE.
[2020-07-31] VITALS (51 sets, daily range): BP systolic 81–143; BP diastolic 20–104
[2020-07-31 04:14] LABS: HEMATOCRIT 23.7 % (37.0-47.0); HEMOGLOBIN 7.7 gm/dL (12.0-15.0); MCH 29.7 pg (26.0-34.0); MCHC 32.7 g/dL (28.0-37.0); MCV 90.9 fL (80.0-100.0); RBC 2.61 mil/uL (4.20-5.00); WBC 13.2 thou/uL (4.0-11.0)
[2020-07-31 04:22] LABS: CALCIUM 8.6 mg/dL (8.5-10.1); CREATININE 1.4 mg/dL (0.6-1.0); MAGNESIUM 2.1 mg/dL (1.8-2.4); POTASSIUM 3.3 mmol/L (3.5-5.1)
[2020-07-31 04:31] LABS: APTT 30.7 Seconds (24.5-32.8); INR 1.1
[2020-07-31 04:53] LABS: BE(vivo) -4.5 mmol/L (-2 to +3); HCO3 22.2 mmol/L (22.0-26.0); PCO2 48.8 mmHg (35.0-45.0); PO2 52.6 mmHg (80.0-100.0); pH 7.276 (7.360-7.450); sO2 82.5 % (92.0-98.0)
--- NOTE | 2020-07-31 06:47 | NUR ---
0445 - PT SATING BETWEEN 79-86. AGB'S OBTAINED. DR. CROOK NOTIFIED OF PT CONDITION AND CRITICAL VALUES ON ABG'S. ORDER OBTAINED TO INCREASE PTS PEEP FROM [address] CROOK. 0649 - PT SATING 92%. PT QUICKLY DESATS WITH ANY SORT OF TOUCH OR MOVEMENT.
--- NOTE | 2020-07-31 10:34 | NUR ---
chart review. consult for ltac. chuy cont to require vent, and nutritional support. she from [facility]. will cont following as needed for dcp, ltac, or ltc. she has not had trach or peg yet.
--- NOTE | 2020-07-31 12:24 | NUR ---
FAXED CLINICAL UPDATE TO [facility] RECEIVED CONFIRMATION AND LEFT MSG WITH THEODORE IN ADM. DP TO FOLLOW.
--- NOTE | 2020-07-31 15:18 | NUR ---
@ APPX 10AM, THIS NURSE CONTACTED PT'S , CHELA, WHO IS LISTED THE DPOA ON FILE, TO PROVIDE UPDATE ON PT CONDITION. DISCUSSED PLAN OF CARE. CHELA VERBALIZED THAT HE "DIDN'T WANT HER O SUFFER ANY MORE." WITHDRAWAL OF LIFE SUPPORT DISCUSSED. REASSURANCES AND EMOTIONAL SUPPORT PROVIDED. WILL MAINAIN CLOSE CONTACT WITH CHELA THROUGH THIS PROCESS.
--- NOTE | 2020-07-31 17:29 | NUR ---
@ 1600, CALLED MULTIPLE FAMILY MEMBERS INDIVIDUALLY ON WIRELESS PHONE SO THEY COULD SPEAK TO PT PRIOR TO WITHDRAWAL OF SUPPORT. PT'S , CHELA WISHES TO REMAIN ON THE PHONE AT BEDSIDE DURING EXTUBATION. REASSURANCES AND EMOTIONAL SUPPORT PROVIDED.
--- NOTE | 2020-07-31 17:57 | NUR ---
PT'S FAMILY MADE DECISION TO WITHDRAW SUPPORT. ALL FAMILY MEMBERS THAT WANTED TO SPEAK TO PT OVER THE PHONE, DID SO. CHELA WISHES TO BE ON SPEAKERPHONE DURING EXTUBATION, AND ALSO WANTS TO BE NOTIFIED WHEN JAIRO PASSES. PROPOFOL IS OFF. TUBE FEEDING IS OFF. IV FLUIDS ARE OFF. LEVOPHED AND FENTANYL REMAIN AT DOCUMENTED RATES. PT PROGRESSING TOWARD EXPECTED GOAL OF COMFORT CARE.
--- NOTE | 2020-07-31 20:22 | NUR ---
TIME OF PRONOUNCED AT 1958 BY TWO RN'S. JESUS SPANN NOTIFIED. ALL CONSULTED DOCORS NOTIFIED. MTN NOTIFIED WITHIN THE HOUR TIME FRAME. PT IS NOT A CANDIDATE FOR FOR ANY DONATION [facility] TIM. FAMILY DID NOT WANT TO SEE PT IN HER CURRENT STATE BUT FAMILY WAS ON THE PHONE TALKING TO HER DURING HER PASSING. HOME SELECTED BY FAMILY AND RECORDED ON SUMMARY SHEET.
== END 2020-07-31 19:59 | DRG 870 ==
LOC: ER 05:53 → EROBS 09:59 → ICU 09:59
PROVIDERS: Emergency Medicine; Hospitalist; Internal Medicine; Internal Medicine Pulmonary Disease; Pediatrics; Specialist; ADMIT Internal Medicine; ATTEND Internal Medicine
PROC: 0B9F8ZX Drainage of Right Lower Lung Lobe, Via Natural or Artificial Opening Endoscopic, Diagnostic (ICD-10-PCS; principal; 2020-07-15)
PROC: 5A09357 Assistance with Respiratory Ventilation, Less than 24 Consecutive Hours, Continuous Positive Airway Pressure (ICD-10-PCS; principal; 2020-07-15)
PROC: XW13325 Transfusion of Convalescent Plasma (Nonautologous) into Peripheral Vein, Percutaneous Approach, New Technology Group 5 (ICD-10-PCS; principal; 2020-07-15)
PROC: 02HV33Z Insertion of Infusion Device into Superior Vena Cava, Percutaneous Approach (ICD-10-PCS; principal; 2020-07-15)
PROC: 5A1955Z Respiratory Ventilation, Greater than 96 Consecutive Hours (ICD-10-PCS; principal; 2020-07-15)
PROC: 0BH18EZ Insertion of Endotracheal Airway into Trachea, Via Natural or Artificial Opening Endoscopic (ICD-10-PCS; principal; 2020-07-15)
PROC: XW033E5 Introduction of Remdesivir Anti-infective into Peripheral Vein, Percutaneous Approach, New Technology Group 5 (ICD-10-PCS; 2020-07-16)
PROC: 30233N1 Transfusion of Nonautologous Red Blood Cells into Peripheral Vein, Percutaneous Approach (ICD-10-PCS; 2020-07-26)
DX: A41.89 Other specified sepsis (principal); J96.02 Acute respiratory failure with hypercapnia; R65.21 Severe sepsis with septic shock; J96.01 Acute respiratory failure with hypoxia; E43 Unspecified severe protein-calorie malnutrition; G92 Toxic encephalopathy; U07.1 COVID-19; J12.89 Other viral pneumonia; N17.9 Acute kidney failure, unspecified; E87.0 Hyperosmolality and hypernatremia; E11.22 Type 2 diabetes mellitus with diabetic chronic kidney disease; I25.10 Atherosclerotic heart disease of native coronary artery without angina pectoris; Y95 Nosocomial condition; F32.9 Major depressive disorder, single episode, unspecified; D63.8 Anemia in other chronic diseases classified elsewhere; E78.5 Hyperlipidemia, unspecified; G47.33 Obstructive sleep apnea (adult) (pediatric); D69.6 Thrombocytopenia, unspecified; I12.9 Hypertensive chronic kidney disease with stage 1 through stage 4 chronic kidney disease, or unspecified chronic kidney disease; E83.42 Hypomagnesemia; E87.6 Hypokalemia; E83.39 Other disorders of phosphorus metabolism; B96.20 Unspecified Escherichia coli [E. coli] as the cause of diseases classified elsewhere; N30.90 Cystitis, unspecified without hematuria; D50.0 Iron deficiency anemia secondary to blood loss (chronic); Z66 Do not resuscitate; N18.30 Chronic kidney disease, stage 3 unspecified; R13.10 Dysphagia, unspecified; E66.01 Morbid (severe) obesity due to excess calories; E87.8 Other disorders of electrolyte and fluid balance, not elsewhere classified; K21.9 Gastro-esophageal reflux disease without esophagitis; Z86.73 Personal history of transient ischemic attack (TIA), and cerebral infarction without residual deficits; Z79.4 Long term (current) use of insulin; Z79.899 Other long term (current) drug therapy; Z68.38 Body mass index [BMI] 38.0-38.9, adult
CPT/HCPCS: 10078; 85076